=== PATIENT | female | born 1945 | race Caucasian/White ===

== ENCOUNTER → 2016-02-10 | Outpatient (CLI) | payer OTHER ==
[2016-02-10 09:29] LABS: BASOPHILS # (AUTO) 0.03 10*3/UL; BASOPHILS % (AUTO) 0.3 % (0-1); EOSINOPHILS % (AUTO) 1.6 % (0-8); HEMATOCRIT 34.1 % (37.0-47.0); HEMOGLOBIN 10.8 g/dL (12.0-16.0); IMM GRAN % (AUTO) 0.3 % (0-5); IMM GRAN# (AUTO) 0.03 10*3/UL; LYMPHOCYTES # (AUTO) 1.33 10*3/uL; LYMPHOCYTES % (AUTO) 14.5 % (10-50); MEAN CORPUSCULAR HEMOGLOBIN 29.8 PG (27-31); MEAN CORPUSCULAR HGB CONC 31.7 g/dL (33-37); MEAN PLATELET VOLUME 9.1 FL (7.4-12.2); MONOCYTES # (AUTO) 0.61 10*3/UL (0.3-0.8); MONOCYTES % (AUTO) 6.6 % (5-15); NEUTROPHILS # (AUTO) 7.04 10*3/UL; NEUTROPHILS % (AUTO) 76.7 % (50-80); RDW COEFFICIENT OF VARIATION 15.8 % (11.5-14.5); RED BLOOD COUNT 3.63 10^6/uL (4.20-5.40); WHITE BLOOD COUNT 9.19 10^3/uL (4.8-10.8)
[2016-02-10 09:48] LABS: PLATELET MORPHOLOGY COMMENT NORMAL MORPHOLOGY (NORM)
[2016-02-10 10:14] LABS: BLOOD UREA NITROGEN 14 mg/dL (7-22); BUN/CREATININE RATIO 15.55 (6-20); CALCIUM 9.5 mg/dL (8.7-10.7); CHLORIDE 106 meq/L (98-112); CREATININE 0.9 mg/dL (0.50-1.20); EST GLOMERULAR FILTRATION > 60 (>60 ml/min/1.73m(2)); GLUCOSE 123 mg/dL (78-110); POTASSIUM 4.3 meq/L (3.8-5.2); SODIUM 142 meq/L (135-145)
[2016-02-10 10:15] LABS: ASPARTATE AMINO TRANSFERASE 37 IU/L (8-39); BILIRUBIN,TOTAL 0.5 mg/dL (0.3-1.2); HDL CHOLESTEROL 57 mg/dL (40-150); TOTAL PROTEIN 7.3 g/dL (6.1-8.0); TRIGLYCERIDES 186 mg/dL (44-200)
[2016-02-10 12:27] LABS: RETIC COUNT 0.0838 10(6)/uL (0.0380-0.1130); RETICULOCYTE PERCENT 2.17 % (0.77-2.36)
== END ==
LOC: LAB 09:08
PROVIDERS: ATTEND Internal Medicine
DX: I50.42 Chronic combined systolic (congestive) and diastolic (congestive) heart failure (principal); D64.9 Anemia, unspecified; J44.9 Chronic obstructive pulmonary disease, unspecified; E11.9 Type 2 diabetes mellitus without complications; I10 Essential (primary) hypertension
CPT/HCPCS: 36415; 80053; 80061; 80162; 82607; 82728; 83010; 83540; 83550; 83880; 83921; 84443; 85025; 85045; 99214; G0463

== ENCOUNTER → 2016-03-10 | Outpatient (CLI) | payer OTHER | LOC: MMPC 11:11 | PROVIDERS: ATTEND Physician Assistant | DX: J01.90 Acute sinusitis, unspecified (principal); Z99.81 Dependence on supplemental oxygen | CPT/HCPCS: 99213; G0463 ==

== ENCOUNTER 2016-04-13 19:26 | Emergency (ER) | payer OTHER ==
[2016-04-13 20:05] LABS: BASOPHILS # (AUTO) 0.03 10*3/UL; BASOPHILS % (AUTO) 0.4 % (0-1); EOSINOPHILS % (AUTO) 2.5 % (0-8); HEMATOCRIT 35.4 % (37.0-47.0); IMM GRAN % (AUTO) 0.4 % (0-5); IMM GRAN# (AUTO) 0.03 10*3/UL; LYMPHOCYTES # (AUTO) 1.19 10*3/uL; LYMPHOCYTES % (AUTO) 13.9 % (10-50); MEAN CORPUSCULAR HEMOGLOBIN 29.1 PG (27-31); MEAN CORPUSCULAR HGB CONC 31.1 g/dL (33-37); MEAN PLATELET VOLUME 9.2 FL (7.4-12.2); NEUTROPHILS # (AUTO) 6.51 10*3/UL; NEUTROPHILS % (AUTO) 75.8 % (50-80); RDW COEFFICIENT OF VARIATION 14.9 % (11.5-14.5); RED BLOOD COUNT 3.78 10^6/uL (4.20-5.40); WHITE BLOOD COUNT 8.57 10^3/uL (4.8-10.8)
[2016-04-13 20:06] LABS: PLATELET MORPHOLOGY COMMENT NORMAL MORPHOLOGY (NORM)
[2016-04-13 20:11] LABS: BILIRUBIN,TOTAL 0.3 mg/dL (0.3-1.2); CALCIUM 9.8 mg/dL (8.7-10.7); POTASSIUM 4.3 meq/L (3.8-5.2)
[2016-04-13 20:20] LABS: NT-PRO BNP 79.1 PG/ML (0-125)
--- NOTE | 2016-04-13 20:26 | PDOC ---
Dyspnea HPI - General Chief Complaint: Dyspnea Stated Complaint: Dyspnea, cough/cold, congestion Date Seen by Provider: 04/13/16 Time Seen by Provider: 20:24 Source: POSITIVE: Patient Exam Limitations: POSITIVE: No limitations Treatment Prior to Arrival: REPORTS: None Nurse's Notes Reviewed & Considered: Yes - History of Present Illness Initial Comments: Patient comes in today with a chief complaint of not feeling well. Aranza is running a low-grade fever of 99.2, with shortness of breath that is chronic in nature. She has a cough with costal margin pain. Myalgias, headache, denies sore throat, no rashes. She has a history of congestive heart failure, DVT, and COPD. She is on 3 L baseline oxygen at home. Body Location Affected: REPORTS: Head, Chest, Abdomen Timing: REPORTS: Gradual, Getting Worse Duration: <24 hours Severity: Moderate Initiating Event: REPORTS: Upper Respiratory Illness Context: REPORTS: Rest, Activity, Exertion Exacerbated By: REPORTS: Exertion, Coughing Associated Symptoms: REPORTS: Fever, Chills, Productive Cough, Anxiety Similar Symptoms Previously: No Recently seen/treated/hospitalized: No Any Prior Injuries Related to Current Complaint?: No - Patient Home Medications Home Medications: Home Medications Aspirin/Calcium Carbonate/Mag [Aspirin Buffered 325 mg Tab] 325 mg PO DAILY #30 05/02/10 Oxygen (O2) 2 unit BULMARO .CONTINUOUS #2 unit 12/06/10 [place]-3 Fatty Acids/Fish Oil [Fish Oil Softgel] 2 capsule PO QD 01/12/11 Bipap 1 unit BULMARO HS #1 unit 07/10/12 Guaifenesin [Mucinex] 2 tab PO Q12H tab 10/14/12 Multivitamin [Daily Vitamin] 2 tab PO QD tab 10/14/12 Nitroglycerin [Nitrostat] 0.4 mg SL PRN #30 tab 03/18/13 Lorazepam [Ativan] 1 mg ORAL QHS #30 tab 01/23/14 Montelukast Sodium [Singulair] 1 tab PO DAILY #0 tab 09/16/14 Tramadol HCl [Ultram] 50 mg PO Q6H PRN #20 tab 01/11/15 Roflumilast [Daliresp] 1 tab PO QD #90 tab 04/27/15 Diltiazem HCl [Diltiazem 24hr Er] 240 mg PO DAILY #90 cap 05/25/15 Potassium Chloride 4 tab PO TID #360 tab 05/25/15 Desvenlafaxine Succinate [Pristiq Er] 1 tab PO DAILY #90 tab 11/08/15 Furosemide 1 tab PO BID #180 tab 11/08/15 Levalbuterol HCl [Xopenex] 1.25 mg NEB Q6H #120 vial 11/08/15 Levalbuterol Tartrate [Xopenex Hfa] 2 puff INH Q4-6H #1 inh 11/08/15 Digoxin 125 mcg PO DAILY tab 12/29/15 Dexlansoprazole [Dexilant] 1 cap PO BID #60 cap 01/06/16 Umeclidinium Stanton [Incruse Ellipta] 62.5 mcg INH QD #3 inhaler 02/10/16 Ferrous Gluconate 1 tab PO QD #90 tab 02/20/16 Budesonide/Formoterol Fumarate [Symbicort] 2 inh IH BID #1 inhaler 03/06/16 Metoprolol Tartrate 1 tab PO QHS #90 tab 03/10/16 - Patient Allergies Allergies/Adverse Reactions: Allergies Allergy/AdvReac Type Severity Reaction Status Date / Time albuterol Allergy Severe heart beat Verified 04/13/16 19:33 increase codeine Allergy Severe PASSES OUT Verified 04/13/16 19:33 Sulfa (Sulfonamide Allergy Unknown HIVES Verified 04/13/16 19:33 Antibiotics) Past Medical History - heen HEENT History: Macular Degeneration, Cataracts, Other (please comment) Additional HEENT History: 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, wears glasses; LT DETACHED RETINA Cardiovascular History: CHF, Arrhythmia, DVTs Respiratory History: Asthma, COPD, Emphysema, Home Oxygen Use Additional Respiratory History: O2 at 2L/min per NC continuous, BI-PAP AT NIGHT , BRONCHITIS Gastrointestinal History: Other (please comment) Additional Gastrointestinal History: APPY Genitourinary History: Denies History Endocrine History: Denies History Musculoskeletal History: Joint Pain Prosthesis or Implant: No Additional Musculoskeletal History: muscular pain Neurological History: Denies History Blood Disorders: Other (please comment) Additional Blood Disorders History: 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 Psychiatric History: Depression History of Sexually Transmitted Diseases: No Cancer History: Denies History History of MDRO: No History of Other Communicable Diseases: No Alcohol Use: Rarely Substance Use Type: None Previous Surgical History: Yes Type / Date of Surgery: TONSILLECTOMY, APPENDECTOMY, TUBAL LIGATION Anesthesia Reactions: No Malignant Hyperthermia: No Significant Family History: Asthma, COPD ROS - Limitations ROS Limitations: No Limitations Constitution: REPORTS: Chills, Fever Cardiovascular: REPORTS: Denies Cardiac Symptoms Respiratory: REPORTS: Cough Non Productive, Shortness Of Breath Neurological: REPORTS: Headache Gastrointestinal: REPORTS: Abdominal Pain, Nausea Endocrine: REPORTS: Denies Symptoms Musculoskeletal: REPORTS: Muscle Aches Genitourinary: REPORTS: Denies Symptoms Eyes: REPORTS: Denies Symptoms ENT: REPORTS: Denies Symptoms Skin: REPORTS: Denies Skin Symptoms Lympathic: REPORTS: Denies Lympathic Symptoms Immunologic: POSITIVE: Denies Symptoms Psychiatric: POSITIVE: Denies Psych Symptoms Dyspnea Physical Exam - General Appearance General Appearance: REPORTS: Alert, Cooperative, No Acute Distress, No Evidence of Trauma - HEENT HEENT: POSITIVE: Head Inspection Nml, Eyes Inspection Nml, Ears Inspection Nml, Nose Inspection Nml, Oral/Dental Inspect. Nml, Pharynx Inspect. Nml, PERRL, EOMI - Neck Neck: REPORTS: Normal Inspection - Respiratory Respiratory: REPORTS: No Respiratory Distress, Breath Sounds Normal, No Pleuritic Chest Pain, Speaks Full Sentences, No Pain on Inspiration - Cardiovascular Cardiovascular: REPORTS: Regular Rate and Rhythm, Heart Sounds Normal - Abdomen Abdomen: Soft: (All Quadrants), Normal Bowel Sounds: (All Quadrants), Denies Tenderness: (All Quadrants) - Skin Skin: REPORTS: Intact, Normal For Race, Warm, Dry, No Rash - Extremities Extremity: Non-Tender: (All Extremities), Normal ROM: (All Extremities), Normal Inspection: (All Extremities) - Neurological / Psychological Neurological: POSITIVE: Affect Apporpriate, Oriented X3 Dyspnea Progress - Results Reviewed by me Xrays/CTs/US Reviewed by me: Yes Discussed with Radiologist: Yes Lab Results Reviewed: Yes Lab Results:: Laboratory Results 04/13/16 04/13/16 Range/Units 20:02 20:05 WBC 8.57 (4.8-10.8) 10^3/uL RBC 3.78 L (4.20-5.40) 10^6/uL Hgb 11.0 L (12.0-16.0) g/dL Hct 35.4 L (37.0-47.0) % MCV 93.7 (81-99) FL MCH 29.1 (27-31) PG MCHC 31.1 L (33-37) g/dL RDW Std Deviation 49.0 (39-50) fL RDW Coeff of Marisa 14.9 H (11.5-14.5) % Plt Count 292 (140-350) 10*3/uL MPV 9.2 (7.4-12.2) FL Immature Gran % (Auto) 0.4 (0-5) % Neut % (Auto) 75.8 (50-80) % Lymph % (Auto) 13.9 (10-50) % Mercer % (Auto) 7.0 (5-15) % Eos % (Auto) 2.5 (0-8) % Baso % (Auto) 0.4 (0-1) % Immature Gran # (Auto) 0.03 10*3/UL Neut # (Auto) 6.51 10*3/UL Lymph # (Auto) 1.19 10*3/uL Mercer # (Auto) 0.60 (0.3-0.8) 10*3/UL Eos # (Auto) 0.21 10*3/UL Baso # (Auto) 0.03 10*3/UL WBC Morphology Comment Normal morphology (NORM) Plt Morphology Comment Normal morphology (NORM) RBC Morph Comment Normal morphology (NORM) D-Dimer 2.14 H (0.00-0.59) mg/L Sodium 136 (135-145) meq/L Potassium 4.3 (3.8-5.2) meq/L Chloride 100 (98-112) meq/L Carbon Dioxide 26 (23-33) meq/L Anion Gap 10 (5-20) BUN 16 (7-22) mg/dL Creatinine 1.0 (0.50-1.20) mg/dL Estimated GFR 55 (>60 ml/min/1.73m(2)) BUN/Creatinine Ratio 16.00 (6-20) Glucose 143 H (78-110) mg/dL Calculated Osmolality 284.0 (267-292) mOsm/kg Calcium 9.8 (8.7-10.7) mg/dL Total Bilirubin 0.3 (0.3-1.2) mg/dL AST 48 H (8-39) IU/L ALT 79 H (9-52) IU/L Alkaline Phosphatase 110 (38-126) IU/L NT-Pro-B Natriuret Pep 79.1 (0-125) PG/ML Total Protein 7.0 (6.1-8.0) g/dL Albumin 4.0 (3.5-4.8) g/dL Globulin 3.0 (2.50-4.10) g/dL Albumin/Globulin Ratio 1.30 (1.3-2.0) mg/g - Patient's Progress Re-Examine Time: 22:18 Status: POSITIVE: Improved MDM / ED Course: Patient was examined, an IV started, blood drawn and sent to the lab for studies , radiographic studies obtained. Findings: CBC shows white count normal. Influenza is negative. CT scan shows no PE, no pneumonia. D-dimer is elevated greater than 2. Assessment: Viral upper respiratory infection. Plan: Discharge home Tylenol and ibuprofen as needed, [id number] cold medicines. Continue with her Xopenex at home. Follow up with her primary care physician. Air Movement: POSITIVE: Fair - Consult Counseled: POSITIVE: Patient, Family, RE: Lab Results, RE: Radiology Results, RE : DX, RE: Need for F/U Patient Care Time - Estimated PCT Patient Care Time (In Minutes): 30 Vital Signs - Recent Vital Signs Vital Signs: Vital Signs (Last 8 hours) Temp Pulse Resp BP Pulse Ox 04/13/16 19:26 99.2 F 106 H 18 133/70 94 - VS Reviewed Vital Signs Reviewed: Yes Discharge Clinical Impression: Upper respiratory infection Discharge Disposition: Discharged to Home Condition: Stable Patient Instructions Given at Discharge: Upper Respiratory Infection (ED)
[2016-04-13] MEDS ORDERED: LEVALBUTEROL HCL 0.63 MG/3 ML NEB ONE (20:31)
[2016-04-13 20:39] VITALS: RESP 18; TEMP 99.2
--- NOTE | 2016-04-13 21:12 | DI ---
PA /LATERAL CHEST X-RAY, 04/13/2016 7:59 PM : Clinical History: Shortness of breath. Previous Exam: 12/03/2015. There is no acute soft tissue or bony abnormality. Heart size is normal. There are no acute infiltrat es or effusions. There is "tram tracking" present in the lower lobes consistent with chronic bronchie ctasis or chronic bronchitis. There are some densities in the right lower lung field on the PA projec tion and this is in the location where the patient has had atelectatic infiltrates in the past. These densities may represent scarring. There is centrilobular emphysema with pulmonary arterial hypertens ion. Both margi are otherwise normal. Readin. There is no acute infiltrate or effusion. There are some densities in the right lower lung field that may be related to atelectatic scarring. If indicated, a more detailed evaluation can be performe d with a CT chest scan either without or with IV contrast. 2. Centrilobular emphysema with pulmonary arterial hypertension.
--- NOTE | 2016-04-13 22:12 | DI ---
HISTORY: Shortness of breath and elevated D-dimer. TECHNIQUE: Contiguous axial images of the chest were obtained and submitted for interpretation. FINDINGS: CT images through the chest demonstrate no evidence of pulmonary embolism. No pleural effusion is apparent. There is some subsegmental atelectasis. There is diffuse fatty infiltration of the liver. IMPRESSION: 1. No pulmonary embolism.
== END 2016-04-13 22:41 | disposition home or self-care (01) ==
LOC: ER 19:26
DX: J06.9 Acute upper respiratory infection, unspecified (principal); R06.02 Shortness of breath; R51 Headache; R05 Cough; Z86.718 Personal history of other venous thrombosis and embolism
CPT/HCPCS: 71020; 71275; 80053; 83880; 85025; 85379; 87804; 94640; 99283

== ENCOUNTER → 2016-05-15 | Outpatient (CLI) | payer OTHER ==
[2016-05-15 08:29] LABS: BASOPHILS # (AUTO) 0.03 10*3/UL; BASOPHILS % (AUTO) 0.4 % (0-1); EOSINOPHILS # (AUTO) 0.23 10*3/UL; EOSINOPHILS % (AUTO) 2.9 % (0-8); HEMATOCRIT 35.5 % (37.0-47.0); HEMOGLOBIN 11.2 g/dL (12.0-16.0); LYMPHOCYTES # (AUTO) 1.56 10*3/uL; MEAN CORPUSCULAR HGB CONC 31.5 g/dL (33-37); MEAN PLATELET VOLUME 8.6 FL (7.4-12.2); MONOCYTES # (AUTO) 0.42 10*3/UL (0.3-0.8); MONOCYTES % (AUTO) 5.3 % (5-15); NEUTROPHILS # (AUTO) 5.68 10*3/UL; NEUTROPHILS % (AUTO) 71.3 % (50-80); RED BLOOD COUNT 3.86 10^6/uL (4.20-5.40)
[2016-05-15 08:40] LABS: PLATELET MORPHOLOGY COMMENT NORMAL MORPHOLOGY (NORM); RBC MORPHOLOGY COMMENT NORMAL MORPHOLOGY (NORM); WBC MORPHOLOGY COMMENT NORMAL MORPHOLOGY (NORM)
[2016-05-15 09:06] LABS: BLOOD UREA NITROGEN 14 mg/dL (7-22); CALCIUM 9.8 mg/dL (8.7-10.7); EST GLOMERULAR FILTRATION > 60 (>60 ml/min/1.73m(2)); SERUM ALBUMIN 3.7 g/dL (3.5-4.8)
== END ==
LOC: LAB 08:12
PROVIDERS: ATTEND Internal Medicine
DX: E11.9 Type 2 diabetes mellitus without complications (principal); D64.9 Anemia, unspecified; J44.9 Chronic obstructive pulmonary disease, unspecified; I50.42 Chronic combined systolic (congestive) and diastolic (congestive) heart failure
CPT/HCPCS: 36415; 80053; 82043; 83036; 85025; 99214

== ENCOUNTER → 2016-05-16 | Outpatient (CLI) | payer OTHER ==
--- NOTE | 2016-05-16 10:00 | DI ---
GALLBLADDER AND LIVER ULTRASOUND, 05/16/2016 9:07 AM: Clinical History: Right upper quadrant pain. Previous Exam: None at this facility. Technique: Scans are performed through the right upper quadrant in multiple projections. The patient was rolled from side to side and the gallbladder was balloted with the probe to facilitate visualizat ion of small gallstones. The gallbladder is well distended and has a normal wall thickness. There are no gallstones. The commo n bile duct measures 5 mm. The pancreas is obscured by gas and the patient's body habitus. There is h epatomegaly with diffuse fatty infiltration. The right kidney, IVC, and the limited views of the aort a are normal. Readin. Normal gallbladder ultrasound. 2. Hepatomegaly with diffuse fatty infiltration. 3. The right kidney, IVC, and limited views of the aorta are normal. The pancreas was not well visua lized.
== END ==
LOC: US 08:44
PROVIDERS: ATTEND Internal Medicine
DX: R10.11 Right upper quadrant pain (principal); K76.0 Fatty (change of) liver, not elsewhere classified
CPT/HCPCS: 76705

== ENCOUNTER → 2016-07-28 | Outpatient (CLI) | payer OTHER ==
--- NOTE | 2016-07-28 10:17 | EKG ---
[address] [place] [address] Measurements Intervals [place] Rate: 50 P: 77 MI: 192 QRS: -60 QRSD: 116 T: 54 QT: 478 QTc: 453 Interpretive Statements SINUS BRADYCARDIA MARKED LEFT AXIS DEVIATION [QRS AXIS < -30] PATTERN CONSISTENT WITH PULMONARY DISEASE RIGHT BUNDLE BRANCH BLOCK [120+ ms QRS DURATION, UPRIGHT V1, 40+ ms S IN I/aVL/V4/V5/V6] Possible SEPTAL MYOCARDIAL INFARCTION [40+ ms Q WAVE IN V1/V2], OF INDETERMINATE AGE Compared to ECG 12/03/2015 16:05:26 Left-axis deviation now present Right bundle-branch block now present Myocardial infarct finding now present Sinus tachycardia no longer present First degree AV block no longer present Incomplete right bundle-branch block no longer present Left anterior fascicular block no longer present Electronically Signed On 07-31-16 08:20:07 MDT by Garry Hinojosa MD [email or web address]
== END ==
LOC: RT 09:51
PROVIDERS: ATTEND Internal Medicine Cardiovascular Disease
DX: I45.81 Long QT syndrome (principal); R00.1 Bradycardia, unspecified; I45.10 Unspecified right bundle-branch block
CPT/HCPCS: 93005; 93010

== ENCOUNTER → 2016-07-31 | Outpatient (CLI) | payer OTHER | LOC: MMPC 11:11 | PROVIDERS: ATTEND Internal Medicine | DX: J44.9 Chronic obstructive pulmonary disease, unspecified (principal); E78.5 Hyperlipidemia, unspecified; E11.9 Type 2 diabetes mellitus without complications | CPT/HCPCS: 99214; G0463 ==